=== PATIENT | female | born 1975 | race Caucasian/White ===

== ENCOUNTER 2022-07-13 09:55 | Emergency (ER) | payer MEDICAID, OTHER ==
[~2022-07-13] VITALS: Ht 162.6 cm; Wt 80.0 kg
[2022-07-13] MEDS ORDERED: FUROSEMIDE 40MG/4ML VIAL IV ONE (10:45)
[2022-07-13] MEDS ORDERED: CLONIDINE 0.1MG TABLET PO ONE (10:45)
[2022-07-13] MEDS ORDERED: HYDRALAZINE 20MG/ML VIAL IV ONE (10:45)
[2022-07-13] MEDS ORDERED: NITROGLYCERIN OINT 1GM/INCH UDPKT TD ONE (10:45)
[2022-07-13] MEDS ORDERED: ACETAMINOPHEN 325MG TABLET PO ONE (10:45)
[2022-07-13 11:15] LABS: BASOPHILS % 1.4 % (0.0-2.0); EOSINOPHILS % 2.8 % (0.0-5.0); HEMATOCRIT. 32.2 % (36.0-48.0); HEMOGLOBIN. 10.3 g/dL (12.0-16.0); LYMPHOCYTES % 23.5 % (20.0-50.0); MEAN CORPUSCULAR VOLUME 68.4 fL (81.0-99.0); MONOCYTES % 6.3 % (2.0-8.0); PLATELET 377 x1000/uL (130-400); RED CELL DISTRIBUTION WIDTH 18.2 % (11.6-14.6)
[2022-07-13 11:22] LABS: CHLORIDE 104 mEq/L (98-107)
[2022-07-13 11:26] LABS: PLATELET ESTIMATE NORMAL
[2022-07-13] MEDS ORDERED: ONDANSETRON HCL 4MG/2ML INJ IV ONE ×2 (11:45→14:15)
[2022-07-13 12:27] LABS: *AMPHETAMINES SCREEN URINE NEGATIVE (NEGATIVE); *BARBITURATES SCREEN URINE NEGATIVE (NEGATIVE); *BENZODIAZEPINES SCREEN URINE NEGATIVE (NEGATIVE); *COCAINE SCREEN URINE NEGATIVE (NEGATIVE); CANNABINOID URINE SCREEN NEGATIVE (NEGATIVE); METHADONE URINE SCREEN NEGATIVE (NEGATIVE); OPIATES URINE SCREEN NEGATIVE (NEGATIVE); PHENCYCLIDINE URINE SCREEN NEGATIVE (NEGATIVE)
[2022-07-13] MEDS ORDERED: SODIUM CHLORIDE 0.9% 1,000 ML IV ONE ×2 (14:15→15:15)
[2022-07-13] MEDS ORDERED: LISI10TA26 MT (14:55)
[2022-07-13 15:25] VITALS: BP 135/80
== END 2022-07-13 15:26 | disposition home or self-care (01) ==
LOC: ER 09:55
DX: I10 Essential (primary) hypertension (principal); Z88.6 Allergy status to analgesic agent
CPT/HCPCS: 36415; 71045; 80053; 80305; 83880; 84484; 85025; 93005; 96374; 96375; 96376; 99285; J0360; J1940; J2405; J7030; Z7610

== ENCOUNTER 2024-02-27 09:42 | Emergency (ER) | payer OTHER ==
[~2024-02-27] VITALS: Ht 154.9 cm; Wt 99.0 kg
[~2024-02-27 09:42] MED LIST: LISI10TA26 MT
[2024-02-27 10:06] VITALS: TEMP 98.7; O2SAT 99
[2024-02-27] MEDS ORDERED: LISI10TA26 MT (12:16)
[2024-02-27 12:33] VITALS: BP 126/80; PULSE 70; RESP 16; O2SAT 99
== END 2024-02-27 12:34 | disposition home or self-care (01) ==
LOC: ER 09:42
DX: Z76.0 Encounter for issue of repeat prescription (principal); I10 Essential (primary) hypertension; Z88.6 Allergy status to analgesic agent; Z79.899 Other long term (current) drug therapy
CPT/HCPCS: 99283

== ENCOUNTER 2025-03-20 09:49 | Emergency (ER) | payer MEDICAID, OTHER ==
[~2025-03-20] VITALS: Ht 154.9 cm; Wt 95.0 kg
[2025-03-20 09:52] VITALS: PULSE 96; RESP 16; O2SAT 99
[2025-03-20 09:58] VITALS: BP 174/102; TEMP 36.7; O2SAT 99
[2025-03-20 10:32] LABS: CLARITY URINE CLOUDY (CLEAR); COLOR URINE BLOODY (YELLOW); GLUCOSE URINE NEGATIVE (NEGATIVE); KETONES URINE NEGATIVE (NEGATIVE); PH URINE 6.5 (4.5-8.0); PROTEIN URINE 3+ (NEGATIVE); SPECIFIC GRAVITY URINE 1.021 (1.005-1.030)
[2025-03-20 10:33] LABS: LEUKOCYTE ESTERASE URINE 1+ (NEGATIVE); NITRITE URINE NEGATIVE (NEGATIVE); OCCULT BLOOD URINE 3+ (NEGATIVE); UROBILINOGEN URINE 1.0 E.U./dL (0.2-1.0)
[2025-03-20 10:34] LABS: RBC URINE TNTC /hpf (0-2)
[2025-03-20 10:35] LABS: BASOPHILS % 1.4 % (0.0-2.0); EOSINOPHILS % 2.4 % (0.0-5.0); HEMATOCRIT. 33.6 % (36.0-48.0); HEMOGLOBIN. 10.9 g/dL (12.0-16.0); LYMPHOCYTES % 22.5 % (20.0-50.0); MEAN PLATELET VOLUME 8.4 fl (7.4-10.4); MONOCYTES % 5.8 % (2.0-8.0); NEUTROPHILS % 67.9 % (40.0-76.0); PLATELET 400 x1000/uL (130-400); RED BLOOD CELL COUNT 4.77 mill/uL (4.2-5.4); RED CELL DISTRIBUTION WIDTH 19.7 % (11.6-14.6)
[2025-03-20 10:40] LABS: WBC URINE NONE SEEN /hpf (0-2)
[2025-03-20 10:44] LABS: BACTERIA URINE NONE SEEN; SQUAMOUS EPITHELIAL CELL URINE NONE SEEN /lpf (RARE/1+)
[2025-03-20 10:48] LABS: CREATININE 0.7 mg/dL (0.6-1.0); UREA NITROGEN BLOOD 10 mg/dL (9-23)
[2025-03-20 11:15] LABS: HCG SCREEN NEGATIVE
== END 2025-03-20 13:03 | disposition home or self-care (01) ==
LOC: ER 09:49
DX: D25.9 Leiomyoma of uterus, unspecified (principal); N93.8 Other specified abnormal uterine and vaginal bleeding; I10 Essential (primary) hypertension; Z79.899 Other long term (current) drug therapy; Z88.6 Allergy status to analgesic agent; F10.90 Alcohol use, unspecified, uncomplicated; Y90.9 Presence of alcohol in blood, level not specified
CPT/HCPCS: 36415; 76830; 76856; 80048; 81003; 81025; 84703; 85025; 86850; 86900; 99284

== ENCOUNTER 2025-03-25 15:49 | Emergency (ER) | payer MEDICAID ==
[~2025-03-25] VITALS: Ht 162.6 cm; Wt 88.0 kg
[2025-03-25 15:55] VITALS: O2SAT 99
[2025-03-25 17:19] LABS: UCG SCREEN NEGATIVE
[2025-03-25 17:20] LABS: UCG KIT EXPIRATION DATE 04/08/2027; UCG KIT LOT# 994099
[2025-03-25 17:57] LABS: BASOPHILS % 1.0 % (0.0-2.0); EOSINOPHILS % 1.7 % (0.0-5.0); HEMATOCRIT. 29.3 % (36.0-48.0); HEMOGLOBIN. 9.7 g/dL (12.0-16.0); LYMPHOCYTES % 20.5 % (20.0-50.0); MEAN PLATELET VOLUME 8.5 fl (7.4-10.4); MONOCYTES % 7.7 % (2.0-8.0); NEUTROPHILS % 69.1 % (40.0-76.0); PLATELET 394 x1000/uL (130-400); RED BLOOD CELL COUNT 4.07 mill/uL (4.2-5.4); RED CELL DISTRIBUTION WIDTH 20.4 % (11.6-14.6)
[2025-03-25 18:13] LABS: HCG SCREEN NEGATIVE
[2025-03-25 18:15] LABS: CREATININE 0.5 mg/dL (0.6-1.0)
[2025-03-25 18:16] LABS: UREA NITROGEN BLOOD 7 mg/dL (9-23)
[2025-03-25] MEDS: POTASSIUM CHLORIDE 20MEQ/PACKET PO NR (19:03)
[2025-03-25 19:08] VITALS: BP 150/80; PULSE 96; RESP 18; TEMP 36.8; O2SAT 99
== END 2025-03-25 19:16 | disposition home or self-care (01) ==
LOC: ER 15:49
DX: N93.8 Other specified abnormal uterine and vaginal bleeding (principal); D25.9 Leiomyoma of uterus, unspecified; I10 Essential (primary) hypertension; Z55.6 Problems related to health literacy; Z79.899 Other long term (current) drug therapy; Z86.018 Personal history of other benign neoplasm; Z88.6 Allergy status to analgesic agent
CPT/HCPCS: 36415; 80048; 81025; 84703; 85025; 86850; 86900; 93005; 99284